=== PATIENT | female | born 1990 | race Caucasian/White ===

== ENCOUNTER 2016-09-10 15:30 | Emergency (ER) | payer OTHER ==
[2016-09-10 16:18] VITALS: RESP 16
[2016-09-10 16:48] LABS: Appearance,Urine Clear (Clear); Bilirubin,Urine Negative (Negative); Glucose,Urine (UA) 3+ (Negative); Leukocyte Esterase,Urine Negative (Negative); Nitrite,Urine Negative (Negative); PH, Urine 5.5 (5.0-8.0); Protein,Urine Trace (Negative); Specific Gravity,Urine 1.022 (1.001-1.035); UA Billing (MACRO vs. MICRO) CHEM; Urobilinogen,Urine <2.0 mg/dL (<2.0)
[2016-09-10 16:59] LABS: Ketones,Urine 3+ (Negative)
[2016-09-10 17:02] LABS: Glucose,Whole Blood 72 mg/dL (75-99)
[2016-09-10] MEDS ORDERED: SODIUM CHLORIDE 0.9% 1,000 ML IV ONE (17:16)
[2016-09-10] MEDS ORDERED: PYRIDOXINE 100 MG/ML 1 ML VIAL IVP STA (17:16)
[2016-09-10] MEDS ORDERED: diphenhydrAMINE 50 MG/ML 1 ML VIAL IVP STA (17:17)
--- NOTE | 2016-09-10 17:20 | ED ---
Abdominal Pain HPI - General Chief Complaint: Abdominal Pain Stated Complaint: NVD Time Seen by Provider: 09/10/16 16:28 Source: patient, RN notes reviewed Mode of arrival: ambulatory Limitations: no limitations - History of Present Illness Initial Comments: Patient is a 25-year-old female presents to the emergency room for evaluation of nausea and vomiting. Patient states she is about 12 weeks . Patient states she has been following up with Dr. Zuleta. Patient states she has a confirmed IUP. Patient states around 7:00 AM this morning she began with nausea and multiple episodes of vomiting and diarrhea. Patient states she is afraid to get dehydrated especially this early in . Patient denies vaginal bleeding. Patient denies any abnormal vaginal discharge. Patient denies pain or burning during urination, trouble urinating or blood in urine. Patient denies fevers or chills. Patient did she's having lower abdominal cramping. Patient denies chest pain, shortness breath, headache, dizziness. Patient states she takes vitamins. Patient denies any other medications or significant past medical history. Patient is . - Related Data Home Medications Medication Instructions Recorded Confirmed Acetaminophen Tab [Tylenol Tab] 325 mg PO Q4H PRN 09/10/16 09/10/16 Calcium Carbonate [Tums] 500 mg PO TID PRN 09/10/16 09/10/16 Clobetasol Propionate [Temovate] 1 applic TOPICAL DAILY PRN 09/10/16 09/10/16 Pediatric Multivit Comb #25/FA 2 tab PO DAILY 09/10/16 09/10/16 [Flintstones Multivit Chew Tab] Vitamin B Complex 1 cap PO QID 09/10/16 09/10/16 Allergies Allergy/AdvReac Type Severity Reaction Status Date / Time latex Allergy Rash/Hives Verified 09/10/16 16:41 opiates Allergy Unknown Uncoded 09/10/16 16:16 Review of Systems ROS Statement: Those systems with pertinent positive or pertinent negative responses have been documented in the HPI. ROS Other: All systems not noted in ROS Statement are negative. Past Medical History Past Medical History: No Reported History History of Any Multi-Drug Resistant Organisms: None Reported Past Surgical History: Section Additional Past Surgical History / Comment(s): eye surgery Past Anesthesia/Blood Transfusion Reactions: No Reported Reaction Past Psychological History: No Psychological Hx Reported Smoking Status: Former smoker General Exam - General Exam Comments Initial Comments: Laying in exam room in no acute distress. Limitations: no limitations General appearance: alert, in no apparent distress Head exam: Present: atraumatic, normocephalic, normal inspection Eye exam: Present: normal appearance ENT exam: Present: normal exam Neck exam: Present: normal inspection Respiratory exam: Present: normal lung sounds bilaterally. Absent: respiratory distress Cardiovascular Exam: Present: regular rate, normal rhythm, normal heart sounds GI/Abdominal exam: Present: soft, normal bowel sounds. Absent: distended, tenderness, guarding, rebound, rigid Extremities exam: Present: normal inspection Back exam: Present: normal inspection Neurological exam: Present: alert, oriented X3, CN II-XII intact, normal gait Psychiatric exam: Present: normal affect, normal mood Skin exam: Present: warm, dry, intact, normal color. Absent: rash Course Vital Signs 09/10/16 16:16 Temperature 98.5 F Pulse Rate 120 H Respiratory 16 Rate Blood Pressure 134/60 O2 Sat by Pulse 99 Oximetry Medical Decision Making - Medical Decision Making Patient is 25-year-old female presents to the emergency room for evaluation of nausea, vomiting, diarrhea and abdominal cramping. Patient states she is 12 weeks . Patient states she is feeling better after fluids and medications given. Urinalysis significant for 3+ glucose. Patient states she did have the same thing towards the end of her last . Patient's Accu- Chek 72. Patient states she will follow-up with her [facility] regarding this issue. Ultrasound showed a viable IUP at 12 weeks/4 days. Patient states she is feeling better and would like to be discharged home. Case discussed with Dr. Alfaro. - Lab Data Result diagrams: 09/10/16 17:36 09/10/16 17:36 Lab Results 09/10/16 09/10/16 09/10/16 Range/Units 16:37 16:37 17:01 WBC (3.8-10.6) k/uL RBC (3.80-5.40) m/uL Hgb (11.4-16.0) gm/dL Hct (34.0-46.0) % MCV (80.0-100.0) fL MCH (25.0-35.0) pg MCHC (31.0-37.0) g/dL RDW (11.5-15.5) % Plt Count (150-450) k/uL Neutrophils % % Lymphocytes % % Monocytes % % Eosinophils % % Basophils % % Neutrophils # (1.3-7.7) k/uL Lymphocytes # (1.0-4.8) k/uL Monocytes # (0-1.0) k/uL Eosinophils # (0-0.7) k/uL Basophils # (0-0.2) k/uL Sodium (137-145) mmol/L Potassium (3.5-5.1) mmol/L Chloride (98-107) mmol/L Carbon Dioxide (22-30) mmol/L Anion Gap mmol/L BUN (7-17) mg/dL Creatinine (0.52-1.04) mg/dL Est GFR (MDRD) Af Amer (>60 ml/min/1.73 sqM) Est GFR (MDRD) Non-Af (>60 ml/min/1.73 sqM) Glucose (74-99) mg/dL POC Glucose (mg/dL) 72 L (75-99) mg/dL POC Glu Rock Breaker ID Laura, Cristina Calcium (8.4-10.2) mg/dL Total Bilirubin (0.2-1.3) mg/dL AST (14-36) U/L ALT (9-52) U/L Alkaline Phosphatase (38-126) U/L Total Protein (6.3-8.2) g/dL Albumin (3.5-5.0) g/dL Amylase (30-110) U/L Lipase (23-300) U/L Urine Color Yellow Urine Appearance Clear (Clear) Urine pH 5.5 (5.0-8.0) Ur Specific [place] 1.022 (1.001-1.035) Urine Protein Trace H (Negative) Urine Glucose (UA) 3+ H (Negative) Urine Ketones 3+ H (Negative) Urine Blood Negative (Negative) Urine Nitrate Negative (Negative) Urine Bilirubin Negative (Negative) Urine Urobilinogen <2.0 (<2.0) mg/dL Ur Leukocyte Esterase Negative (Negative) Urine HCG, Qual Detected (Not Detectd) 09/10/16 09/10/16 Range/Units 17:36 17:36 WBC 11.1 H (3.8-10.6) k/uL RBC 4.85 (3.80-5.40) m/uL Hgb 14.2 (11.4-16.0) gm/dL Hct 42.4 (34.0-46.0) % MCV 87.5 (80.0-100.0) fL MCH 29.4 (25.0-35.0) pg MCHC 33.6 (31.0-37.0) g/dL RDW 13.1 (11.5-15.5) % Plt Count 174 (150-450) k/uL Neutrophils % 93 % Lymphocytes % 3 % Monocytes % 3 % Eosinophils % 1 % Basophils % 0 % Neutrophils # 10.3 H (1.3-7.7) k/uL Lymphocytes # 0.4 L (1.0-4.8) k/uL Monocytes # 0.3 (0-1.0) k/uL Eosinophils # 0.1 (0-0.7) k/uL Basophils # 0.0 (0-0.2) k/uL Sodium 137 (137-145) mmol/L Potassium 4.3 (3.5-5.1) mmol/L Chloride 103 (98-107) mmol/L Carbon Dioxide 21 L (22-30) mmol/L Anion Gap 13 mmol/L BUN 7 (7-17) mg/dL Creatinine 0.50 L (0.52-1.04) mg/dL Est GFR (MDRD) Af Amer >60 (>60 ml/min/1.73 sqM) Est GFR (MDRD) Non-Af >60 (>60 ml/min/1.73 sqM) Glucose 88 (74-99) mg/dL POC Glucose (mg/dL) (75-99) mg/dL POC Glu Rock Breaker ID Calcium 9.2 (8.4-10.2) mg/dL Total Bilirubin 0.7 (0.2-1.3) mg/dL AST 18 (14-36) U/L ALT 27 (9-52) U/L Alkaline Phosphatase 58 (38-126) U/L Total Protein 7.7 (6.3-8.2) g/dL Albumin 4.5 (3.5-5.0) g/dL Amylase 63 (30-110) U/L Lipase 38 (23-300) U/L Urine Color Urine Appearance (Clear) Urine pH (5.0-8.0) Ur Specific [place] (1.001-1.035) Urine Protein (Negative) Urine Glucose (UA) (Negative) Urine Ketones (Negative) Urine Blood (Negative) Urine Nitrate (Negative) Urine Bilirubin (Negative) Urine Urobilinogen (<2.0) mg/dL Ur Leukocyte Esterase (Negative) Urine HCG, Qual (Not Detectd) - Radiology Data Radiology results: report reviewed, image reviewed Disposition Clinical Impression: Hyperemesis gravidarum, Glycosuria Disposition: HOME SELF-CARE Condition: Good Instructions: Hyperemesis Gravidarum (ED) Additional Instructions: Clear liquid diet for the next 1-2 days. Please follow-up with [facility] on Monday . If any new symptom arises, symptoms worsen or fever develops, return to ER as soon as possible. Referrals: Reinaldo Smith MD [Primary Care Provider] - 1-2 days Michael Valencia DO [Doctor of Osteopathic Medicine] - 1-2 days Time of Disposition: 20:25
[2016-09-10 17:52] LABS: Basophils % (A) 0 %; CH 30.4; CHCM 34.9; Eosinophils # (A) 0.1 k/uL (0-0.7); Eosinophils % (A) 1 %; HCT 42.4 % (34.0-46.0); HDW 2.67; HGB 14.2 gm/dL (11.4-16.0); Luc # (Auto) 0.05; Luc % (Auto) 0; Lymphocytes # (A) 0.4 k/uL (1.0-4.8); Lymphocytes % (A) 3 %; MCH 29.4 pg (25.0-35.0); MCHC 33.6 g/dL (31.0-37.0); MCV 87.5 fL (80.0-100.0); Mean Platelet Volume 7.5; Monocytes # (A) 0.3 k/uL (0-1.0); Monocytes % (A) 3 %; Neutrophils # (A) 10.3 k/uL (1.3-7.7); Neutrophils % (A) 93 %; RBC 4.85 m/uL (3.80-5.40); RDW 13.1 % (11.5-15.5); WBC 11.1 k/uL (3.8-10.6); WBC (Perox) 11.26
[2016-09-10 18:03] LABS: ALT 27 U/L (9-52); AST 18 U/L (14-36); Alkaline Phosphatase 58 U/L (38-126); Amylase 63 U/L (30-110); Anion Gap 13 mmol/L; Blood Urea Nitrogen 7 mg/dL (7-17); Calcium 9.2 mg/dL (8.4-10.2); Carbon Dioxide 21 mmol/L (22-30); Chloride 103 mmol/L (98-107); Glucose 88 mg/dL (74-99); Non-African American GFR(MDRD) >60 (>60 ml/min/1.73 sqM); Potassium 4.3 mmol/L (3.5-5.1); Sodium 137 mmol/L (137-145); Total Bilirubin 0.7 mg/dL (0.2-1.3); Total Protein 7.7 g/dL (6.3-8.2)
--- NOTE | 2016-09-10 20:26 | US ---
EXAMINATION TYPE: US OB <=14 wks transvag DATE OF EXAM: 09/10/2016 7:30 PM COMPARISON: NONE CLINICAL HISTORY: Pain, nausea, vomiting, diarrhea. EXAM PERFORMED: Transabdominal (TA) EXAM MEASUREMENTS: GESTATIONAL AGE / DATING Physician Established: not yet established Dates by LMP: patient unsure of LMP Dates by First Scan: (12 weeks/2 days) EDC: 03/23/16 Dates by Current Scan for: (12 weeks/4 days) EDC: 03/21/16 MATERNAL ANATOMY Uterus: 15.8 x 6.2 x 8.4cm Right Ovary: 2.0 x 1.5 x 1.4cm Left Ovary: 3.4 x 2.2 x 2.2cm Post CDS / Adnexa: wnl Presence of free fluid: no GESTATION / SURVEY CRL: 6.1cm (12 weeks/4 days) Yolk Sac (normal less than 6mm): not seen Heart Rate: 162 bpm Rhythm: Normal IUP: Viable IUP Date of LMP: patient unsure Beta HcG (if available): not available TECHNOLOGIST IMPRESSION: Viable IUP. IMPRESSION: 1. Single intrauterine gestation estimated at 12 weeks 4 days gestation. Cardiac activity measures 16 2 bpm.
[2016-09-10 20:39] VITALS: BP 115/70; PULSE 89; TEMP 97.9
== END 2016-09-10 20:38 | disposition home or self-care (01) ==
LOC: EC 15:30
DX: O21.0 Mild hyperemesis gravidarum (principal); R81 Glycosuria; Z3A.12 12 weeks gestation of pregnancy; R10.9 Unspecified abdominal pain; Z91.040 Latex allergy status; Z88.5 Allergy status to narcotic agent; Z87.891 Personal history of nicotine dependence
CPT/HCPCS: 36415; 80053; 82150; 83690; 85025; 81003; 81025; 76801; 99284; 96374; 96361; J1200; J3415

== ENCOUNTER → 2016-10-25 | Outpatient (CLI) | payer OTHER ==
--- NOTE | 2016-10-25 15:44 | US ---
EXAMINATION TYPE: US OB anatomy transabd second trimester DATE OF EXAM: 10/25/2016 3:23 PM COMPARISON: First trimester ultrasound March 10, 2017. HISTORY: LGA TECHNIQUE: OBTA pelvic ultrasound EXAM MEASUREMENTS: GESTATIONAL AGE / DATING Physician Established: (18 weeks/5 days) EDC: 03/23/2017 Dates by LMP: unknown Dates by First Scan: (18 weeks/5 days) EDC: 03/23/2017 Dates by Current Scan for: (18 weeks/6 days) EDC: 03/22/2017 SURVEY IUP: Single PLACENTA: Posterior PREVIA: No previa TORSTEN: 13.6 cm CERVICAL LENGTH (transabdominal: norm > 3.0cm): 3.9 cm BIOMETRY PRESENTATION: Vertex LIE: Longitudinal BPD: 4.1 cm 18 weeks / 4 days HC: 16.5 cm 19 weeks / 2 days AC: 12.3 cm 18 weeks / 0 days FL: 3.0 cm 19 weeks / 2 days ESTIMATED WEIGHT IN GRAMS: 250 grams ESTIMATED WEIGHT IN LBS/OZS: 0 lbs. 9 oz. WEIGHT PERCENTAGE BASED ON ESTABLISHED DATE: 40 % HC/AC: 1.3 Normal FL/AC: 24 Normal HEART RATE: 139 bpm RHYTHM: Normal ANATOMY SEEN (within normal limits): * Lateral Vent (< 1 cm) 0.5 cm * Cisterna Magna (< 1.1 cm) 0.5 cm * Nuchal Fold (< 0.6 cm) 0.2 cm * Cerebellum (varies with age) 1.7 cm Choroid Plexus (bilateral) Midline Falx Cavus Septi Pellucidi Four Chamber Heart Outflow tracts: LVOT/RVOT Stomach Situs Nose / Lips Diaphragm Kidneys (bilateral) Bladder Cord Insert Three Vessel Cord Longitudinal Spine Transverse Spine Arms (bilateral) Legs (bilateral) TECHNOLOGIST IMPRESSION: Viable 18w6d IUP seen and appears wnl for growth Single live intrauterine gestation is redemonstrated. There is slightly low lying placenta without ul trasound evidence for placenta previa. Amniotic fluid index is within normal limits. biometry m easurements are within normal limits. Detailed anatomical survey shows no suspicious abnormality on i mages saved or during real-time scanning per technologist. IMPRESSION: As above.
[2016-10-25 23:02] LABS: Hemoglobin A1C 4.4 % (4.2-6.1)
== END | disposition home or self-care (01) ==
LOC: RADUSWWP 14:13
PROVIDERS: ATTEND Obstetrics & Gynecology
DX: O36.62X0 Maternal care for excessive fetal growth, second trimester, not applicable or unspecified (principal); Z3A.18 18 weeks gestation of pregnancy
CPT/HCPCS: 76811; 82105; 82677; 82947; 83036; 84702; 86336

== ENCOUNTER → 2016-12-30 | Outpatient (CLI) | payer BC, OTHER ==
[2016-12-30 10:38] LABS: CH 30.5; CHCM 33.2; HCT 31.8 % (34.0-46.0); HDW 2.95; HGB 10.8 gm/dL (11.4-16.0); MCH 31.3 pg (25.0-35.0); MCHC 33.9 g/dL (31.0-37.0); MCV 92.4 fL (80.0-100.0); Mean Platelet Volume 7.3; RBC 3.45 m/uL (3.80-5.40); RDW 13.9 % (11.5-15.5); WBC 7.6 k/uL (3.8-10.6)
== END | disposition home or self-care (01) ==
LOC: LABWHC1 09:09
PROVIDERS: ATTEND Obstetrics & Gynecology
DX: Z34.91 Encounter for supervision of normal pregnancy, unspecified, first trimester (principal)
CPT/HCPCS: 36415; 82950; 84439; 84443; 85027

== ENCOUNTER 2017-03-17 06:14 | Inpatient (IN) | payer BC, OTHER ==
[2017-03-17] MEDS ORDERED: LACTATED RINGERS 1,000 ML IV ONE (06:17)
[2017-03-17] MEDS ORDERED: CITRIC ACID-SODIUM CITRATE 15 ML CUP PO ONE (06:17)
[2017-03-17 06:26] VITALS: BMI 28.9
[2017-03-17 06:49] LABS: Basophils % (A) 0 %; CH 29.2; CHCM 34.3; Eosinophils % (A) 0 %; HDW 3.14; Luc % (Auto) 2; Lymphocytes # (A) 1.8 k/uL (1.0-4.8); Lymphocytes % (A) 21 %; MCH 28.6 pg (25.0-35.0); MCHC 33.5 g/dL (31.0-37.0); MCV 85.5 fL (80.0-100.0); Mean Platelet Volume 8.5; Monocytes # (A) 0.6 k/uL (0-1.0); Monocytes % (A) 7 %; Neutrophils # (A) 5.8 k/uL (1.3-7.7); Neutrophils % (A) 70 %; RBC 3.86 m/uL (3.80-5.40); RDW 15.4 % (11.5-15.5); WBC 8.4 k/uL (3.8-10.6); WBC (Perox) 9.12
[2017-03-17] MEDS ORDERED: ceFAZolin 2 GM in SODIUM CHLORIDE 0.9% 100 ML IVPB ONE (07:29)
[2017-03-17] MEDS ORDERED: FAMOTIDINE 20 MG/2 ML VIAL ONE (07:51)
[2017-03-17] MEDS ORDERED: DEXAMETHASONE SOD PHOS (MDV) 100 MG/10 ML VIAL ONE (07:51)
[2017-03-17] MEDS ORDERED: ONDANSETRON 4 MG/2 ML VIAL ONE (07:51)
[2017-03-17] MEDS ORDERED: KETOROLAC 30 MG/ML 1 ML VIAL ONE (07:51)
[2017-03-17] MEDS ORDERED: diphenhydrAMINE 50 MG/ML 1 ML VIAL ONE (07:51)
[2017-03-17] MEDS ORDERED: OXYTOCIN 10 UNIT/ML 1 ML VIAL ONE (07:51)
[2017-03-17] MEDS ORDERED: PHENYLEPHRINE-0.9% NACL SYG 1 MG/10 ML SYRINGE ONE (07:51)
[2017-03-17] MEDS ORDERED: fentaNYL (PF) 50 MCG/ML 2 ML AMP ONE (07:51)
[2017-03-17] MEDS ORDERED: NALBUPHINE 10 MG/ML AMPUL ONE (07:51)
[2017-03-17] MEDS ORDERED: diphenhydrAMINE 25 MG CAP PO PRN (08:49)
[2017-03-17] MEDS ORDERED: diphenhydrAMINE 50 MG/ML 1 ML VIAL IVP PRN (08:49)
[2017-03-17] MEDS ORDERED: METOCLOPRAMIDE 5 MG/ML 2 ML VIAL IVP PRN (08:49)
[2017-03-17] MEDS ORDERED: IBUPROFEN 600 MG TAB PO PRN (08:49)
[2017-03-17] MEDS ORDERED: ZOLPIDEM 5 MG TAB PO PRN (08:49)
[2017-03-17] MEDS ORDERED: ONDANSETRON 4 MG/2 ML VIAL IVP PRN (08:49)
[2017-03-17] MEDS ORDERED: diphenhydrAMINE 50 MG CAP PO PRN (08:49)
[2017-03-17] MEDS ORDERED: ACETAMINOPHEN TAB 325 MG TAB PO PRN (08:49)
[2017-03-17] MEDS ORDERED: NALOXONE 0.4 MG/ML 1 ML VIAL IV PRN (08:49)
--- NOTE | 2017-03-17 08:54 | P.HPOB ---
History of Present Illness H&P Date: 03/17/17 Chief Complaint: Intrauterine at term: Prior sections Patient is a 26-year-old G for P2 at 39 weeks 1 day gestation arise for repeat section. Her course was, K by early depression but that did improve over the course of she did have a remote history of GBS positive status but no problems or concerns with this during this . Due to previous side effect of the Duramorph spinal we are opting to not use Duramorph and will plan to use a Dilaudid QUARTZ MINER BLASTING post operatively as this seemed to work well with her last set section. Her vital signs are stable and afebrile. Heart regular, lungs clear, extremities without pain. Osteopathic exams unremarkable.. Pertinent labs O+ blood type Rh and better was negative, rubella immune, hepatitis B surface antigen, HIV were both negative. heart tones 1230-140 and reactive. Assessment intrauterine at term with prior section. Plan repeat low transverse section Past Medical History Past Medical History: No Reported History History of Any Multi-Drug Resistant Organisms: None Reported Past Surgical History: Section Additional Past Surgical History / Comment(s): eye surgery. C-SECT X 2 Past Anesthesia/Blood Transfusion Reactions: No Reported Reaction Past Psychological History: No Psychological Hx Reported Smoking Status: Former smoker Past Alcohol Use History: None Reported Additional Past Alcohol Use History / Comment(s): QUIT SMOKING MAY 2016 Past Drug Use History: None Reported - Past Family History Mother Family Medical History: No Reported History Medications and Allergies Home Medications Medication Instructions Recorded Confirmed Type No Known Home Medications [No 03/13/17 03/17/17 History Known Home Medications] Allergies Allergy/AdvReac Type Severity Reaction Status Date / Time latex Allergy Rash/Hives Verified 03/17/17 06:17 opiates Allergy Dyspnea Uncoded 03/17/17 06:17 Exam Osteopathic Statement: *. No significant issues noted on an osteopathic structural exam other than those noted in the History and Physical/Consult. - Vital Signs Vital signs: Vital Signs Temp Pulse Resp BP 03/17/17 06:21 96.7 F L 114 H 14 132/59 Intake and Output 03/16/17 03/17/17 03/17/17 22:59 06:59 14:59 Other: Weight 71.668 kg Results Result Diagrams: 03/17/17 06:33 Abnormal Lab Results - Last 24 Hours (Table) 03/17/17 Range/Units 06:33 Hgb 11.0 L (11.4-16.0) gm/dL Hct 33.0 L (34.0-46.0) %
--- NOTE | 2017-03-17 08:59 | P.OP ---
Date of Procedure: 03/17/17 Preoperative Diagnosis: Intrauterine at 39 weeks: Prior sections Postoperative Diagnosis: Same Procedure(s) Performed: Repeat low transverse section Implants: Anesthesia: spinal Surgeon: Michael Valencia Metal Flow Coordinator #1: Prachi Hill Estimated Blood Loss (ml): 600 IV fluids (ml): 900 Urine output (ml): 100 Pathology: other ([place]) Condition: stable Disposition: floor Indications for Procedure: Operative Findings: Delivery of a viable male scores were however 4, 7, 9 at one and 5 and 10 minutes. Preoperatively however there were no indication of any issues with the fetus baby was taken to special care nursery Description of Procedure: Patient was taken to the operating suite where a spinal anesthetic was found be adequate. She was prepped and draped in normal sterile fashion and placed in dorsal supine position with leftward tilt. Initially her old skin incision was excised. Once this was accomplished incision was carried through to underlying layer of the fascia second knife and the fascia was nicked in the midline. His opening was then extended laterally with Small scissors. Superior and inferior aspect of this incision were then grasped tented up and bluntly and sharply dissected off the rectus muscles. Rectus muscles were then divided the midline and blunt dissection to peritoneum was made. This opening was then extended superiorly and inferiorly with good visualization of both bowel bladder. Bladder blade was then placed vesicouterine peritoneum identified and grasped pickups. This opening was then extended across face uterus with Metzenbaum scissors and bladder flap was digitally created. Knife was then used to incise uterus this opening was then opened completely with hemostat and then bluntly extended. Head was then H medically delivered without difficulty mouth nares bulb suctioned anterior posterior shoulders delivered and umbilical cord clamped cut usual fashion. Nursery personnel was present at that point to assume care. Placenta was then delivered intact Pitocin was added to the IV. Uterus was then exteriorized cleared of clots and debris and closed in 1 layer with 0 Vicryl suture. Once excellent hemostasis was obtained blood and debris was suctioned from the posterior cul-de-sac and uterus was reinserted into the abdomen. Peritoneal layer was then closed [place] suture fascial layer was closed with 0 Vicryl suture. 3-0 Vicryl was used to reapproximate the skin and close the space and skin was then closed with 3-0 Vicryl on a Too needle. Sponge, lap, needle counts were all correct 2 and patient was taken to the recovery room in stable and satisfactory condition.
[2017-03-17] MEDS: HYDROmorphone PCA 5 MG/25 ML SYRINGE IV PRN ×3 (09:12→20:25)
[2017-03-17] MEDS: LACTATED RINGERS 1,000 ML IV SCH ×4 (12:21→23:20)
[2017-03-17] MEDS: KETOROLAC 30 MG/ML 1 ML VIAL IVP PRN ×2 (15:11→21:15)
[2017-03-17] MEDS: SENNOSIDES-DOCUSATE SODIUM 1 EACH TAB PO SCH (19:26)
[2017-03-17] MEDS: diphenhydrAMINE 50 MG/ML 1 ML VIAL IVP PRN (21:11)
[2017-03-18] MEDS: diphenhydrAMINE 50 MG/ML 1 ML VIAL IVP PRN (03:18)
[2017-03-18] MEDS: KETOROLAC 30 MG/ML 1 ML VIAL IVP PRN ×2 (03:18→09:03)
[2017-03-18] MEDS: LACTATED RINGERS 1,000 ML IV SCH (03:19)
[2017-03-18] MEDS ORDERED: NALBUPHINE 10 MG/ML AMPUL IM ONE (07:10)
[2017-03-18] MEDS: SENNOSIDES-DOCUSATE SODIUM 1 EACH TAB PO SCH (07:41)
[2017-03-18 07:50] VITALS: BP 119/79; PULSE 90; RESP 16; TEMP 98.7
[2017-03-18 08:18] LABS: Basophils % (A) 0 %; CH 28.8; Eosinophils % (A) 0 %; HCT 30.8 % (34.0-46.0); Luc # (Auto) 0.11; Luc % (Auto) 1; Lymphocytes # (A) 1.6 k/uL (1.0-4.8); Lymphocytes % (A) 16 %; MCH 28.5 pg (25.0-35.0); MCHC 32.4 g/dL (31.0-37.0); MCV 87.9 fL (80.0-100.0); Mean Platelet Volume 8.2; Monocytes # (A) 0.5 k/uL (0-1.0); Monocytes % (A) 5 %; Neutrophils # (A) 7.7 k/uL (1.3-7.7); Neutrophils % (A) 77 %; RDW 15.3 % (11.5-15.5); WBC (Perox) 10.83
--- NOTE | 2017-03-18 10:19 | P.DS ---
Providers Date of admission: 03/17/17 06:14 Expected date of discharge: 03/18/17 Attending physician: Michael Valencia Primary care physician: Reinaldo Matthew [facility] Course: Patient seen and evaluated postop day 1. She is overall doing very well. She is involuting, voiding and she is tolerating her diet. She voices no points of than mild pain. However her baby was [facility] to [facility] and she would like to go and be with her child. We'll plan discharged home today with discharge instructions thoroughly reviewed. All questions are answered for her at this time. Heart regular, lungs clear, extremities without pain. Abdomen soft uterus is firm lochia is light. Incisions clean dry and intact. Assessment postop day 1. Plan discharged to home so she may go and see her baby until hospital. She will follow up with me in approximately 1 week. Prescription for noted Kite and Motrin have been provided. Patient Condition at Discharge: Good Plan - Discharge Summary New Discharge Prescriptions: New HYDROcodone/APAP 5-325MG [Kite 5-325] 1 tab PO Q4HR PRN #30 tab PRN Reason: Pain Ibuprofen [Motrin] 600 mg PO Q6HR PRN #30 tab PRN Reason: Pain Zolpidem [Ambien] 5 mg PO HS PRN #30 tab PRN Reason: Insomnia Discharge Medication List HYDROcodone/APAP 5-325MG [Kite 5-325] 1 tab PO Q4HR PRN #30 tab 03/18/17 [Rx] Ibuprofen [Motrin] 600 mg PO Q6HR PRN #30 tab 03/18/17 [Rx] Zolpidem [Ambien] 5 mg PO HS PRN #30 tab 03/18/17 [Rx] Follow up Appointment(s)/Referral(s): Michael Valencia DO [Doctor of Osteopathic Medicine] - 1 Week Activity/Diet/Wound Care/Special Instructions: 90 lifting, limit stairs, limit driving, pelvic rest. If any high temperatures , heavy bleeding, or severe pain call my office Discharge Disposition: HOME SELF-CARE
== END 2017-03-18 10:57 | disposition home or self-care (01) | DRG 766 ==
LOC: 4FBP 06:14
PROVIDERS: ADMIT Obstetrics & Gynecology; ATTEND Obstetrics & Gynecology
PROC: 10D00Z1 Extraction of Products of Conception, Low, Open Approach (ICD-10-PCS; principal; 2017-03-17 08:00)
DX: O34.211 Maternal care for low transverse scar from previous cesarean delivery (principal); O99.824 Streptococcus B carrier state complicating childbirth; Z37.0 Single live birth; Z3A.39 39 weeks gestation of pregnancy; Z87.891 Personal history of nicotine dependence; Z91.040 Latex allergy status; Z88.5 Allergy status to narcotic agent
CPT/HCPCS: 85025; 86850; 86900; 86901; 88307

== ENCOUNTER → 2019-05-03 | Outpatient (CLI) | payer BC ==
--- NOTE | 2019-05-03 17:20 | US ---
EXAMINATION TYPE: US abdomen complete DATE OF EXAM: 05/03/2019 COMPARISON: NONE CLINICAL HISTORY: R10.9 ABD PAIN. low back pain EXAM MEASUREMENTS: Liver Length: 12.3 cm Gallbladder Wall: 0.2 cm CBD: 0.3 cm Spleen: 10.9 cm Right Kidney: 10.0 x 4.5 x 4.9 cm Left Kidney: 10.9 x 5.0 x 6.5 cm Pancreas: wnl Liver: wnl Gallbladder: tiny sludgeball versus polyp, unable to prove mobility. Evidence for sonographic York's sign: No CBD: wnl Spleen: wnl Right Kidney: two upper pole side by side cysts, first one measures 1.9 x 1.5 x 1.7 cm, and the seco nd one measures 1.5 x 1.3 x 1.5 cm. Left Kidney: No hydronephrosis or masses seen Upper IVC: wnl Abd Aorta: wnl The visualized liver is homogenous. The intrahepatic portion of the IVC and visualized abdominal aor ta are within normal limits. There is no evidence of cholelithiasis. Common bile duct is unremarkab le. The visualized portions of the pancreas are homogenous. The spleen is unremarkable. Kidneys ar e symmetric and free of hydronephrosis. No suspicious renal lesions are seen. Technologist identifie s a few small simple appearing thin-walled cyst in the right kidney upper pole level. IMPRESSION: No suspicious acute findings identified.
[2019-05-03 17:30] LABS: Basophils # (A) 0.1 k/uL (0-0.2); Basophils % (A) 1 %; Eosinophils % (A) 1 %; HCT 38.7 % (34.0-46.0); HGB 12.9 gm/dL (11.4-16.0); Lymphocytes # (A) 1.7 k/uL (1.0-4.8); Lymphocytes % (A) 22 %; MCH 29.3 pg (25.0-35.0); MCHC 33.3 g/dL (31.0-37.0); MCV 87.9 fL (80.0-100.0); Mean Platelet Volume 6.8; Monocytes # (A) 0.5 k/uL (0-1.0); Monocytes % (A) 6 %; Neutrophils # (A) 5.6 k/uL (1.3-7.7); Neutrophils % (A) 69 %; Platelet Count 285 k/uL (150-450); RDW 13.6 % (11.5-15.5)
[2019-05-03 18:02] LABS: ALT 14 U/L (9-52); AST 15 U/L (14-36); African American GFR (CKD) >90 (>60 ml/min/1.73 sqM); Albumin 4.2 g/dL (3.5-5.0); Alkaline Phosphatase 65 U/L (38-126); Amylase 48 U/L (30-110); Anion Gap 10 mmol/L; Blood Urea Nitrogen 9 mg/dL (7-17); Calcium 9.2 mg/dL (8.4-10.2); Carbon Dioxide 25 mmol/L (22-30); Chloride 104 mmol/L (98-107); Glucose 87 mg/dL (74-99); Non-African American GFR(CKD) >90 (>60 ml/min/1.73 sqM); Potassium 4.2 mmol/L (3.5-5.1); Sodium 139 mmol/L (137-145); Total Bilirubin 0.4 mg/dL (0.2-1.3); Total Protein 7.3 g/dL (6.3-8.2)
== END | disposition home or self-care (01) ==
LOC: RADUSWWP 16:40
PROVIDERS: ATTEND Family Medicine
DX: R10.9 Unspecified abdominal pain (principal)
CPT/HCPCS: 76700; 80053; 82150; 83690; 85025

== ENCOUNTER → 2019-06-26 | Outpatient (CLI) | payer BC ==
[2019-06-26 16:12] LABS: HCT 40.1 % (34.0-46.0); HGB 13.3 gm/dL (11.4-16.0); MCH 29.3 pg (25.0-35.0); MCHC 33.3 g/dL (31.0-37.0); Mean Platelet Volume 6.5; Platelet Count 288 k/uL (150-450); RBC 4.56 m/uL (3.80-5.40); RDW 12.6 % (11.5-15.5); WBC 7.5 k/uL (3.8-10.6)
== END | disposition home or self-care (01) ==
LOC: LABPAT 15:03
PROVIDERS: ATTEND Surgery Plastic and Reconstructive Surgery
DX: Z01.812 Encounter for preprocedural laboratory examination (principal)
CPT/HCPCS: 85027

== ENCOUNTER 2019-06-27 13:18 | Day surgery (SDC) | payer BC ==
[2019-06-24 15:47] VITALS: BMI 27.4
--- NOTE | 2019-06-27 11:51 | P.GSHP ---
History of Present Illness H&P Date: 06/27/19 CHIEF COMPLAINT: Cholecystitis HISTORY OF PRESENT ILLNESS: The patient is a 28-year-old female who presents with history of epigastric including right upper quadrant abdominal pain. She underwent diagnostic studies for her gallbladder. Separately her clinical picture was consistent with cholecystitis. Now she presents for surgical intervention. PAST MEDICAL HISTORY: Please see list PAST SURGICAL HISTORY: Please see list MEDICATIONS: Please see list ALLERGIES: Denies. SOCIAL HISTORY: No illicit drug use or recent tobacco use FAMILY HISTORY: Pertinent for gallbladder disease REVIEW OF ORGAN SYSTEMS: CONSTITUTIONAL: No reports of fevers or chills. HEENT: Denies any troubles with the vision or hearing. ENDOCRINE: No reports of hypothyroidism. No diabetes. RESPIRATORY: No recent pneumonias. CARDIOVASCULAR: Denies chest pain or palpitations GI: No blood in stools or constipation. MUSCULOSKELETAL: Has occasional joint pain including back pain. NEURO: No seizure disorders or headaches. No recent stroke. PSYCH: No depression or suicidal ideation. GENITOURINARY: No active blood in urine. No urinary hesitancy. HEMATOLOGIC: No personal or family history of DVTs or pulmonary emboli. SKIN: No skin cancer. PHYSICAL EXAM: VITAL SIGNS: Afebrile vital signs stable GENERAL: Well-developed pleasant in no acute distress. HEENT: No scleral icterus. Extraocular movements grossly intact. Moist buccal mucosa. NECK: Supple without lymphadenopathy. CHEST: Unlabored respirations. Equal bilateral excursions. CARDIOVASCULAR: Regular rate regular rhythm rhythm. Distal 2+ pulses. ABDOMEN: Soft, nondistended. Tender along the epigastrium and right upper quadrant. MUSCULOSKELETAL: No clubbing, cyanosis, or edema. NEURO: Cranial nerves II to XII within normal limits. No focal or lateralizing signs. PSYCH: Alert and oriented to person, place and time. SKIN: Well-perfused good skin turgor. ASSESSMENT: 1. Epigastric and right upper quadrant abdominal pain 2. Chronic cholecystitis 3. Symptomatic gallstones. PLAN: 1. Will need a robotic cholecystectomy possible open. Benefits and risks were described. 2. Heparin for DVT prophylaxis 5000 units. 3. Antibiotic prophylaxis. Past Medical History Past Medical History: GERD/Reflux Additional Past Medical History / Comment(s): Mild Acid Reflux on occasion. History of Any Multi-Drug Resistant Organisms: None Reported Past Surgical History: Section Additional Past Surgical History / Comment(s): Eye surgery, SECTION X3. Past Anesthesia/Blood Transfusion Reactions: No Reported Reaction Past Psychological History: No Psychological Hx Reported Smoking Status: Former smoker Past Alcohol Use History: Rare Additional Past Alcohol Use History / Comment(s): QUIT SMOKING MAY 2016. Past Drug Use History: None Reported - Past Family History Mother Family Medical History: No Reported History Medications and Allergies Home Medications Medication Instructions Recorded Confirmed Type No Known Home Medications 06/24/19 06/24/19 History Allergies Allergy/AdvReac Type Severity Reaction Status Date / Time latex Allergy Rash/Hives Verified 06/24/19 15:35 morphine Allergy Itching Verified 06/24/19 15:49 opiates Allergy Dyspnea Uncoded 06/24/19 15:35
[~2019-06-27 13:18] MED LIST: HEPARIN SODIUM,PORCINE 5,000 UNIT/ML 1 ML VIAL SQ ONE; INDOCYANINE GREEN 25 MG VIAL IV STA; LACTATED RINGERS 1,000 ML IV SCH; ONDANSETRON 4 MG/2 ML VIAL IVP PRN
[2019-06-27] MEDS ORDERED: MIDAZOLAM 2 MG/2 ML VIAL IV ONE (15:02)
[2019-06-27] MEDS ORDERED: NEOSTIGMINE 1 MG/ML 10 ML VIAL ONE (15:58)
[2019-06-27] MEDS ORDERED: MIDAZOLAM 2 MG/2 ML VIAL ONE (15:58)
[2019-06-27] MEDS ORDERED: fentaNYL (PF) 50 MCG/ML 2 ML AMP ONE (15:58)
[2019-06-27] MEDS ORDERED: diphenhydrAMINE 50 MG/ML 1 ML VIAL ONE (15:58)
[2019-06-27] MEDS ORDERED: SUCCINYLCHOLINE CHLORIDE 100 MG/5 ML SYR IV ONE (15:58)
[2019-06-27] MEDS ORDERED: GLYCOPYRROLATE 0.2 MG/ML 2 ML VIAL ONE (15:58)
[2019-06-27] MEDS ORDERED: LIDOCAINE 1% INJ 10MG/ML (20 ML MDV) ONE (15:58)
[2019-06-27] MEDS ORDERED: INDOCYANINE GREEN 25 MG VIAL IV ONE (15:58)
[2019-06-27] MEDS ORDERED: ROCURONIUM BROMIDE 10 MG/ML 10 ML VIAL IV ONE (15:58)
[2019-06-27] MEDS ORDERED: PROPOFOL 10 MG/ML 20 ML VIAL IV ONE (15:58)
[2019-06-27] MEDS ORDERED: LIDOCAINE 1% INJ 10MG/ML (20 ML MDV) SQ ONE (16:21)
[2019-06-27] MEDS ORDERED: LACTATED RINGERS 1,000 ML IV ONE (16:34)
--- NOTE | 2019-06-27 17:06 | P.OP ---
Date of Procedure: 06/27/19 Description of Procedure: SURGEON: KYLAH BELL MD PREOPERATIVE DIAGNOSES: 1. Right upper quadrant abdominal pain 2. Symptomatic gallstones 3. Chronic cholecystitis POSTOPERATIVE DIAGNOSES: 1. Right upper quadrant abdominal pain 2. Symptomatic gallstones 3. Chronic cholecystitis OPERATION: Robotic-assisted da Kari Xi laparoscopic cholecystectomy, multiport with FIREFLY ESTIMATED BLOOD LOSS: 5 mL. SPECIMENS REMOVED: Gallbladder. COMPLICATIONS: None. OPERATIVE FINDINGS: 1. Chronic cholecystitis INDICATIONS: The patient is a 28-year-old female who presents with cholelcystitis. Surgical intervention with a laparoscopic cholecystectomy was described at length including injury to the biliary tree, bleeding, infection, need for further surgery. Informed consent was obtained. Robotic assisted laparoscopic approach was described. Benefits and risks of the proc edure including but not limited to bleeding, infection, injury to the biliary tree was described. Informed consent was obtained. DESCRIPTION OF PROCEDURE: Patient was brought to the operating room, placed in supine position. After general induction, the abdomen had been prepped and draped in standard sterile fashion. The robotic da Kari XI system was primed. After a timeout protocol was performed, the patient had been prepped and draped in standard sterile fashion. The patient was injected with indocyanine green. A 5 mm 0 degrees laparoscopic trocar entry was performed along the left upper quadrant. The abdomen insufflated to 15 mmHg pressure which was tolerated well. Diagnostic laparoscopy demonstrated no injury to bowel viscera or mesentery. The liver surface was unremarkable. Next, two 8 mm robotic ports were placed along the right upper abdomen. The camera 8-mm port was maintained along the epigastrium. Another 8 mm port was placed along the left upper abdominal wall after exchanging the 5 mm port. Please note that the ports were placed at least 10 to 15 cm away from the target anatomy of the gallbladder. The robot was docked along the left lateral abdomen. The patient was repositioned in reverse Trendelenburg position. Using a grasper for arm 3, a grasper for arm 4, including hook cautery for arm 1, the robotic system was docked and primed as described. Instruments were interchanged by the medical records assistant including hook cautery, Bovie cautery and clip appliers. I had sat at the console. The gallbladder fundus was retracted over the dome of the liver. Initial attention was brought to the infundibulum which was gently retracted in the inferior lateral approach. Using a grasper, the cystic duct including the cystic artery was carefully skeletonized. FIREFLY was used to identify the cystic artery and cystic structures. A critical view of safety was obtained. Large PLASTIC clips were used throughout the entire case. Using a clip lead refiner 2 clips were placed proximally, and 1 clip was placed between the infundibulum and cystic duct and divided using cautery. Next, the cystic artery was similarly clipped and cauterized. Electro-Bovie cautery was used to remove the gallbladder from the hepatic fossa. Hemostasis was checked and found to be adequate. The robot was undocked. I re-scrubbed into the case. Using a 10 mm Endo Catch bag via the left upper quadrant incision, the specimen was removed from the abdominal cavity. All pneumoperitoneum instruments were evacuated from the abdominal cavity. The incisions were reapproximated using 4-0 Monocryl in an interrupted subcuticular fashion. Fascial defects were less than 8 mm in size. Please note along the trocar sites, local anesthetic was placed as a field block prior to insertion of all instruments. Liquid glue was applied to the skin. At the end of the procedure needle, sponge, and instrument count had been verified correct by the certified surgical tech/first assistant. The patient was transferred to postanesthesia care unit in stable condition. Intraoperative films were shared with the patient's family who were very pleased with the level of care. Plan - Discharge Summary Discharge Rx Participant: Yes New Discharge Prescriptions: New Naproxen [Naprosyn] 500 mg PO BID #30 tablet Acetaminophen Tab [Tylenol Tab] 500 mg PO Q6H PRN #30 tablet PRN Reason: Pain Discharge Medication List Acetaminophen Tab [Tylenol Tab] 500 mg PO Q6H PRN #30 tablet 06/27/19 [Rx] Naproxen [Naprosyn] 500 mg PO BID #30 tablet 06/27/19 [Rx] Follow up Appointment(s)/Referral(s): Kylah Bell MD [STAFF PHYSICIAN] - 07/02/19 Patient Instructions/Handouts: Low Fat Diet (DC), Laparoscopic Cholecystectomy (DC) Activity/Diet/Wound Care/Special Instructions: No lifting over 10 pounds for 2 weeks, 07/11/2019. May shower. No bathtub soaks until 07/11/2019. Low-fat diet. Use ice along incisions. Discharge Disposition: HOME SELF-CARE
[2019-06-27 17:10] VITALS: TEMP 96.8
[2019-06-27] MEDS: HYDROmorphone 0.5 MG/0.5 ML SYRINGE IVP PRN ×2 (17:43→17:45)
[2019-06-27] MEDS ORDERED: diphenhydrAMINE 50 MG/ML 1 ML VIAL IVP ONE (17:45)
[2019-06-27] MEDS ORDERED: KETOROLAC 30 MG/ML 1 ML VIAL IVP ONE (17:53)
[2019-06-27 18:23] VITALS: RESP 18
[2019-06-27 18:45] VITALS: BP 114/76; PULSE 62
== END 2019-06-27 19:00 | disposition home or self-care (01) ==
LOC: OR 13:18
PROVIDERS: ATTEND Surgery Plastic and Reconstructive Surgery
DX: K80.20 Calculus of gallbladder without cholecystitis without obstruction (principal); K21.9 Gastro-esophageal reflux disease without esophagitis; F90.9 Attention-deficit hyperactivity disorder, unspecified type; M25.50 Pain in unspecified joint; Z91.040 Latex allergy status; Z88.5 Allergy status to narcotic agent; Z98.890 Other specified postprocedural states; Z87.891 Personal history of nicotine dependence; Z79.899 Other long term (current) drug therapy
CPT/HCPCS: 47562; S2900; 81025; 88304

== ENCOUNTER → 2023-09-04 | Outpatient (CLI) | payer BC ==
[2023-09-04 11:09] LABS: Basophils # (A) 0.02 X 10*3/uL (0.00-0.10); Basophils % (A) 0.4 %; Eosinophils # (A) 0.14 X 10*3/uL (0.04-0.35); Eosinophils % (A) 2.8 %; HCT 39.5 % (37.2-46.3); HGB 12.6 g/dL (12.0-15.0); Lymphocytes # (A) 1.47 X 10*3/uL (0.90-5.00); Lymphocytes % (A) 29.5 %; MCH 28.4 pg (27.0-32.0); MCHC 31.9 g/dL (32.0-37.0); MCV 89.2 FL (80.0-97.0); Mean Platelet Volume 10.6 FL (9.5-12.2); Monocytes # (A) 0.38 X 10*3/uL (0.20-1.00); Monocytes % (A) 7.6 %; NRBC Per 100 WBC 0 X 10*3/uL (0.00-0.01); Neutrophils # (A) 2.96 X 10*3/uL (1.80-7.70); Neutrophils % (A) 59.3 %; Platelet Count 275 X 10*3/uL (140-440); RBC 4.43 X 10*6/uL (4.10-5.20); WBC 4.99 X 10*3/uL (4.50-10.00)
[2023-09-04 11:30] LABS: ALT 10 U/L (8-44); AST 11 U/L (13-35); Albumin 4.4 g/dL (3.8-4.9); Albumin/Globulin Ratio 1.69 Ratio (1.60-3.17); Alkaline Phosphatase 56 U/L (41-126); BUN/Creat Ratio 15.33 Ratio (12.00-20.00); Blood Urea Nitrogen 9.2 mg/dL (9.0-27.0); Calcium 9.6 mg/dL (8.7-10.3); Carbon Dioxide 24.5 mmol/L (21.6-31.8); Chloride 104 mmol/L (96-109); Chol/HDL Ratio 2.38 Ratio; Globulin 2.6 g/dL (1.6-3.3); Glucose 88 mg/dL (70-110); LDL Cholesterol,Calculated 72.7 mg/dL (0.0-131.0); Potassium 4.2 mmol/L (3.5-5.5); Sodium 140 mmol/L (135-145); Total Bilirubin 0.2 mg/dL (0.3-1.2); VLDL Calculation 13.08 mg/dL (5.00-40.00)
== END | disposition home or self-care (01) ==
LOC: LABWHC1 08:19
PROVIDERS: ATTEND Family Medicine
DX: Z00.00 Encounter for general adult medical examination without abnormal findings (principal)
CPT/HCPCS: 36415; 80053; 80061; 83036; 84443; 85025

== ENCOUNTER → 2024-11-12 | Outpatient (CLI) | payer BC ==
[2024-11-12 17:53] LABS: Basophils # (A) 0.02 X 10*3/uL (0.00-0.10); Basophils % (A) 0.5 %; Eosinophils # (A) 0.03 X 10*3/uL (0.04-0.35); Eosinophils % (A) 0.8 %; HCT 35.9 % (37.2-46.3); HGB 11.5 g/dL (12.0-15.0); Lymphocytes # (A) 1.21 X 10*3/uL (0.90-5.00); Lymphocytes % (A) 31.7 %; MCH 28.5 pg (27.0-32.0); MCV 88.9 FL (80.0-97.0); Mean Platelet Volume 9.9 FL (9.5-12.2); Monocytes # (A) 0.38 X 10*3/uL (0.20-1.00); Monocytes % (A) 9.9 %; NRBC Per 100 WBC 0 X 10*3/uL (0.00-0.01); Neutrophils # (A) 2.17 X 10*3/uL (1.80-7.70); Neutrophils % (A) 56.8 %; Platelet Count 236 X 10*3/uL (140-440); RBC 4.04 X 10*6/uL (4.10-5.20); RDW 13.1 % (11.5-14.5); WBC 3.82 X 10*3/uL (4.50-10.00)
[2024-11-12 20:36] LABS: ALT 37 U/L (8-44); AST 25 U/L (13-35); Alkaline Phosphatase 61 U/L (41-126); Carbon Dioxide 24.3 mmol/L (21.6-31.8); Chloride 104 mmol/L (96-109); Chol/HDL Ratio 2.99 Ratio; Globulin 2.5 g/dL (1.6-3.3); Glucose 98 mg/dL (70-110); Iron 12 UG/DL (50-170); LDL Cholesterol,Calculated 62.9 mg/dL (0.0-131.0); Potassium 3.2 mmol/L (3.5-5.5); Sodium 142 mmol/L (135-145); T4, Free (Free Thyroxine) 1.87 ng/dL (0.80-1.80); Total Bilirubin 0.3 mg/dL (0.3-1.2); Total Iron Binding Capacity 300 UG/DL (228-460); Total Protein 6.5 g/dL (6.2-8.2)
== END | disposition home or self-care (01) ==
LOC: LABWHC1 08:01
PROVIDERS: ATTEND Nurse Practitioner Adult Health
DX: Z00.00 Encounter for general adult medical examination without abnormal findings (principal); K92.1 Melena
CPT/HCPCS: 36415; 80053; 80061; 82728; 83540; 83550; 84439; 84443; 85025